=== PATIENT | female | born 1995 | race Caucasian/White ===

== ENCOUNTER 2016-10-22 20:45 | Emergency (ER) | payer OTHER, BC ==
[~2016-10-22] VITALS: Ht 170.2 cm; Wt 80.5 kg
[~2016-10-22 20:45] MED LIST: SERT50TA PO
[2016-10-22 21:07] VITALS: TEMP 36.7; Ht 170.2 cm; Wt 80.5 kg
--- NOTE | 2016-10-22 22:12 | DIAGNOSTIC IMAGING REPORT ---
THORACIC SPINE 3 VIEWS CLINICAL HISTORY: Thoracic back pain. FINDINGS: AP, lateral, and swimmer's views of the thoracic spine are correlated with lateral chest x-ray dated 07/08/2015. The skeletal structures are well mineralized. There is no radiographic evidence of fracture or malalignment. Vertebral body height and alignment are maintained. The transverse processes and pedicles are grossly intact on the frontal view. Intervertebral disc spaces appear maintained. The lung parenchyma is clear as visualized. IMPRESSION: Unremarkable radiographic assessment of the thoracic spine. Electronically signed by: Alvaro Valderrama M.D. 10/22/2016 10:10 PM Dictated Date/Time: 10/22/2016 10:09 PM
[2016-10-22 22:20] LABS: MANUAL MICROSCOPIC REQUIRED? NO; URINE APPEARANCE CLEAR (CLEAR); URINE BILIRUBIN NEG (NEG); URINE COLOR YELLOW; URINE NITRITE NEG (NEG); URINE PH 5.5 (4.5-7.5); URINE SPECIFIC GRAVITY <= 1.005 (1.000-1.030); UROBILINOGEN NEG (NEG)
[2016-10-22 22:26] LABS: REVIEW REQ? NO
[2016-10-22] MEDS ORDERED: FLEXERIL HOME PACK 10 MG VIAL PO ONE (22:45)
[2016-10-22] MEDS ORDERED: CYCL10TA6 PO (22:46)
[2016-10-22 22:55] VITALS: BP 118/74; PULSE 75; O2SAT 99
--- NOTE | 2016-10-23 00:57 | EMERGENCY ROOM VISIT NOTE ---
ED Visit Note First contact with patient: 21:12 Chief Complaint: I hurt my back at work. History of Present Illness: Ms. Tobar is a 21-year-old white female who ambulates into the ED complaining of thoracic back pain. Patient reports approximately 4 hours ago while at work she was helping to lift a client and felt a pulling in her back and developed pain. Since that time her pain has been constant. She describes her pain as a deep achy and sharp sensation. She places her discomfort just lateral to the thoracic bony spine in the lower rhomboid area. She rates her discomfort 5/10. Her pain is nonradiating. Her pain increases with deep inspiration and palpation. She has not identified any alleviating factors related to the pain. She has not taken any medications for pain prior to arrival at the hospital. Associated with her pain she also reports she does feel like she is been having increased urinary frequency but has not had any burning. She denies any associated symptoms including fevers, chills, sweats, skin eruptions, skin color changes, previous history of significant injuries or surgeries, coughing, wheezing, shortness of breath, abdominal pain, nausea, vomiting, urinary burning, hematuria, vaginal bleeding, vaginal discharge Review of Systems: As noted above in history of present illness. All body systems were reviewed and found to be negative as noted above. Past Medical History: Patient denies. Current Medications: Zoloft. Allergies to Medications: Sulfa, Zithromax. Social History: Patient is currently employed; she feels safe in her home environment; she admits to tobacco use. Physical Examination: Vital Signs: Date Time Temp Pulse Resp B/P Pulse Ox O2 Delivery O2 Flow Rate FiO2 10/22/16 22:55 75 18 118/74 99 Room Air 10/22/16 21:07 36.7 76 18 139/84 99 Room Air GENERAL: 21-year-old female in mild distress due to pain, nontoxic-appearing, afebrile and hemodynamically stable. NEUROLOGICAL: Awake, alert and oriented to person, place and time. Answering questions appropriately and following commands. Normal gait. Good hand eye coordination. No focal motor sensory deficits. SKIN: Warm, dry and pink. No soft tissue eruptions or trauma noted. HEENT: Atraumatic and normocephalic. PERRLA. Sclera white and conjunctiva pink. No drainage from naris. Oral cavity moist and pink. Pharynx is nonerythematous or edematous. Speech normal. No lymphadenopathy. Trachea midline. No jugular venous distention. BACK: No tenderness over the bony cervical and thoracic spine. Moderate tenderness with muscle spasm over the left lower rhomboid and trapezius area. No CVA tenderness. THORAX: Lungs sounds are clear to auscultation and equal bilaterally with symmetrical chest wall. No wheezing, rales or rhonchi. No crepitus, tenderness , subcutaneous air or deformities noted. HEART: Regular rate and rhythm. No gallops, rubs or murmurs are appreciated. ABDOMEN: Flat, soft and nontender. Positive bowel sounds in all quadrants. No guarding, rigidity or organomegaly. UPPER EXTREMITIES: Moves all extremities well on command and with purpose. All distal neurovascular statuses are intact and equal bilaterally. 5/5 muscle strength in all movements of the shoulder, elbows, forearms, wrists and hands. 2+ bicipital, tricipital and brachial radialis deep tendon reflexes intact and equal bilaterally. She was able to distinguish light sensations through all dermatomes. ED Course: Patient is assessed as noted above. Thoracic Back X-Rays: Were read by myself and the radiologist and shows no acute fractures or other abnormalities. No signs of bony deformity or subluxation. Patient was educated about tonight's findings and instructed on her treatment plan; she verbalizes understanding and agreement with this plan. Patient was offered pain medications and refused. Patient was educated about tonight's findings and instructed on her treatment plan; she verbalizes understanding and agreement with this plan. Clinical Impression: Thoracic back spasm. Disposition: Patient discharged home in stable condition; prior to departure she was reassessed and subjectively reported she was feeling better and rated her discomfort 2/10. Plan: Patient was encouraged to alternate ibuprofen and acetaminophen as needed for pain every 3 hours. Patient was prescribed Flexeril and instructed on achieves. Patient was signed off work for 3 days and was told to follow-up through Workmen 's Compensation for recheck and return to work instructions. Patient was encouraged return the ED for worsening/uncontrolled pain, upper extremity weakness/numbness/tingling or any new/concerning symptoms. Return to the emergency department
== END 2016-10-22 22:55 | disposition home or self-care (01) ==
LOC: C.EDB 20:47 → C.EDD 22:55
DX: M62.830 Muscle spasm of back (principal); Y99.0 Civilian activity done for income or pay; Y92.89 Other specified places as the place of occurrence of the external cause; X50.0XXA Overexertion from strenuous movement or load, initial encounter; Z79.899 Other long term (current) drug therapy; F17.200 Nicotine dependence, unspecified, uncomplicated

== ENCOUNTER 2016-10-31 15:28 | Emergency (ER) | payer OTHER, BC ==
[~2016-10-31] VITALS: Ht 170.2 cm; Wt 80.5 kg
[~2016-10-31 15:28] MED LIST changes: +CYCL10TA6 PO
[2016-10-31 15:35] VITALS: BP 133/78; PULSE 86; TEMP 36.7; O2SAT 98; Ht 170.2 cm; Wt 80.5 kg
--- NOTE | 2016-10-31 16:06 | EMERGENCY ROOM VISIT NOTE ---
ED Visit Note First contact with patient: 15:45 CHIEF COMPLAINT: Back pain HISTORY OF PRESENT ILLNESS: This 21-year-old female patient presents to the emergency department ambulatory complaining of pain in the w back which began 9 days ago when she was at work and moving a patient and felt a pulling sensation in her back. The pain was gradual in onset, is now constant and worse with movement. The patient notes the pain as sharp and a 8/10. The patient has taken naproxen and Flexeril with no relief of the pain. The patient denies any bowel or bladder difficulties. There has been no leg numbness or weakness, and no change in sensation. There has been no arm tingling or numbness. No nausea or vomiting or abdominal pain. No chest pain or shortness of breath. The patient has not had prior back injuries. She was initially seen here and had negative x-rays. She has also seen occupational medicine yesterday who gave her naproxen and schedule physical therapy to start tomorrow. She states the pain has increased and she is concerned that she cannot do the physical therapy because of the pain. REVIEW OF SYSTEMS: No dysuria or increased urinary frequency. A 6 system review of systems was completed and pertinent positives and negatives are in the HPI. ALLERGIES: Zithromax, sulfa MEDICATIONS: Zoloft PMH: Patient denies SOCIAL HISTORY: The patient is employed. She lives locally PHYSICAL EXAM: VITALS: Vitals are noted on the nurse's note and reviewed by myself. No abnormalities noted. GENERAL: This is a 21-year-old female, in no acute distress, nondiaphoretic, well-developed well-nourished. SKIN: The skin was without rashes, erythema, edema, or bruising. Capillary refill less than 2 seconds. NECK: Supple without nuchal rigidity. No cervical spine tenderness. No paraspinous muscle tenderness. HEART: Regular rate and rhythm without murmurs gallops or rubs. LUNGS: Clear to auscultation bilaterally without wheezes, rales or rhonchi. ABDOMEN: Positive bowel sounds x 4. Normal tympanic percussion. Soft, nontender, without masses or organomegaly. Au sign negative. MUSCULOSKELETAL: No muscle atrophy, erythema, or edema noted of the back. There is moderate tenderness over the lumbar spinous processes. There is moderate tenderness over the paraspinous muscles bilaterally. There is moderate tenderness over the thoracic spine and paraspinous muscles. There are no muscle spasms present. The patient is slow to move around with maximum tenderness with any movement. Negative straight leg raise test. NEURO: Patient was alert and oriented to person place and time. Normal sensation to light and sharp touch. Deep tendon reflexes 2+ in the upper extremities. Dorsalis pedis pulse 2+ bilaterally. Heel and toe walking is normal. EMERGENCY DEPARTMENT COURSE: The patient was seen and examined. Previous visits were reviewed. The patient was seen here approximately 9 Days ago after her injury. 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 She had x-rays that were normal at that time. The patient has followed up with occupational medicine, most recently seeing them yesterday. They gave her naproxen and scheduled her for physical therapy. The patient states the pain has persisted and she is concerned she could not complete the physical therapy because of the pain. She denies any pain in her chest or trouble breathing. She denies any abdominal pain or vomiting. The pain is worse with moving. She does not have any numbness, tingling or weakness in the upper or lower extremities. She does not have any neurologic deficit on exam. She does not have any significant abdominal tenderness. The patient will be given a very small prescription for [place]. She is given a note for work for 2 days in the event that she needs to take the [place]. She should contact occupational medicine first thing in the morning to schedule a follow-up appointment for further evaluation and management. I advised her that she may need to try the physical therapy before pursuing other interventions. She should return to the ER with any worsening symptoms. I reviewed the prescription drug monitoring website. The patient has not had recent narcotic prescriptions filled. Problem List Surgical Problems: (1) History of ear surgery Status: Resolved Current/Historical Medications Scheduled Sertraline (Zoloft), 100 MG PO HS Scheduled PRN Cyclobenzaprine Hcl (Flexeril), 10 MG PO Q8 PRN for Muscle Spasms Hydrocodone/Acetaminophen 5MG/325MG ([place] 5MG/325MG), 1 TABLET PO Q4H PRN for Pain Allergies Coded Allergies: Azithromycin (Verified Allergy, Unknown, HIVES/SWELLING, 10/31/16) Sulfa Drugs (Verified Allergy, Unknown, FAMILY HISTORY OF SWELLING/HIVES, 10/31/16) Vital Signs Date Time Temp Pulse Resp B/P Pulse Ox O2 Delivery O2 Flow Rate FiO2 10/31/16 15:35 36.7 86 18 133/78 98 Room Air Departure Information Impression Primary Impression: Back pain Additional Impression: Muscle spasm Dispostion Home / Self-Care Condition GOOD Prescriptions Hydrocodone/Acetaminophen 5MG/325MG ([place] 5MG/325MG) Tab 1 TABLET PO Q4H Y for Pain, #18 TAB For Initial Treatment Prov: Rachel Mccallum PA-C 10/31/16 Referrals John San M.D. (PCP) Jany Donato Forms HOME CARE DOCUMENTATION FORM, IMPORTANT VISIT INFORMATION, Work Instructions Return To Work: 2 days Patient Instructions ED Spasm Muscle, [facility] Additional Instructions Continue the naproxen but be sure to take with food [place] 1 tablet every 6 hours if needed for worse pain. Do not drink or drive while taking [place] and do not take with Tylenol. Contact occupational medicine first thing in the morning to discuss the next treatment option Return with any worsening symptoms, numbness, tingling, chest pain, trouble breathing, fevers, abdominal pain Problem Qualifiers Primary Impression: Back pain Back pain location: thoracic back pain Chronicity: acute Back pain laterality: bilateral Qualified Codes: M54.6 - Pain in thoracic spine
[2016-10-31] MEDS ORDERED: HYDR-5688 PO (16:11)
== END 2016-10-31 16:16 | disposition home or self-care (01) ==
LOC: C.EDB 15:29 → C.EDD 16:16
DX: M62.830 Muscle spasm of back (principal); Z79.899 Other long term (current) drug therapy; G89.29 Other chronic pain; Y99.0 Civilian activity done for income or pay; X50.0XXA Overexertion from strenuous movement or load, initial encounter

== ENCOUNTER 2016-12-05 09:10 | Emergency (ER) | payer BC, OTHER ==
[~2016-12-05] VITALS: Ht 170.2 cm; Wt 82.9 kg
[~2016-12-05 09:10] MED LIST changes: -CYCL10TA6 PO; +HYDR-5688 PO
[2016-12-05 09:21] VITALS: TEMP 36.7; Ht 170.2 cm; Wt 82.9 kg
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
[2016-12-05] MEDS ORDERED: FENTANYL CITRATE INJ 50 MCG/1 ML 2 ML VIAL IV STA (10:03)
[2016-12-05] MEDS ORDERED: SODIUM CHLORIDE 0.9% 1000ML 1,000 ML IV STA (10:03)
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
[2016-12-05 12:38] LABS: BASO % 0.4 %; BASO ABS # 0.03 K/uL (0-0.2); COMPLETE YES; EOS % 1.5 %; HEMATOCRIT 39.8 % (37-47); IG% 0.6 %; LYMPH % 20.9 %; LYMPH ABS # 1.71 K/uL (1.2-3.4); MEAN CORPUSCULAR HEMOGLOBIN 30.1 pg (25-34); MEAN CORPUSCULAR HGB CONC 33.4 g/dl (32-36); MEAN PLATELET VOLUME 11.3 fL (7.4-10.4); MONO % 7.1 %; NEUT % 69.5 %; PLATELET COUNT 227 K/uL (130-400); RED BLOOD COUNT 4.42 M/uL (4.2-5.4)
[2016-12-05 12:44] LABS: BUN/CREATININE RATIO 12.5 (10-20); CREATININE 0.76 mg/dl (0.60-1.20); POTASSIUM 4.1 mmol/L (3.5-5.1)
[2016-12-05] MEDS ORDERED: HYDROCODONE/ACETAMOPHEN 5/325MG TAB PO STA (12:48)
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
[2016-12-05 12:54] VITALS: BP 123/78; PULSE 69; O2SAT 98
== END 2016-12-05 13:34 | disposition home or self-care (01) ==
LOC: EDBD 09:10 → C.EDB 09:11
DX: S09.90XA Unspecified injury of head, initial encounter (principal); V49.40XA Driver injured in collision with unspecified motor vehicles in traffic accident, initial encounter; Y92.488 Other paved roadways as the place of occurrence of the external cause; M54.2 Cervicalgia; M54.9 Dorsalgia, unspecified; F17.210 Nicotine dependence, cigarettes, uncomplicated; Z83.3 Family history of diabetes mellitus; Z82.49 Family history of ischemic heart disease and other diseases of the circulatory system; Z84.1 Family history of disorders of kidney and ureter

== ENCOUNTER 2017-03-05 14:16 | Emergency (ER) | payer BC, OTHER ==
[~2017-03-05] VITALS: Ht 170.2 cm; Wt 81.6 kg
[~2017-03-05 14:16] MED LIST changes: -HYDR-5688 PO
[2017-03-05 14:20] VITALS: Ht 170.2 cm; Wt 81.6 kg
[2017-03-05 14:42] VITALS: O2SAT 96
[2017-03-05] MEDS ORDERED: AMOX500C3 PO (14:58)
[2017-03-05] MEDS ORDERED: SNG10 PO (14:58)
[2017-03-05] MEDS ORDERED: PRDUDL5 PO (14:58)
[2017-03-05 15:14] LABS: BASO % 0.5 %; BASO ABS # 0.04 K/uL (0-0.2); COMPLETE YES; HEMATOCRIT 40.2 % (37-47); IG% 0.2 %; LYMPH % 34.2 %; LYMPH ABS # 2.95 K/uL (1.2-3.4); MEAN CELL VOLUME 89.1 fL (80-100); MEAN CORPUSCULAR HEMOGLOBIN 30.2 pg (25-34); MEAN CORPUSCULAR HGB CONC 33.8 g/dl (32-36); MEAN PLATELET VOLUME 11.4 fL (7.4-10.4); MONO % 7.8 %; NEUT % 55.3 %; PLATELET COUNT 239 K/uL (130-400); RED BLOOD COUNT 4.51 M/uL (4.2-5.4); WHITE BLOOD COUNT 8.63 K/uL (4.8-10.8)
[2017-03-05 15:24] LABS: POINT OF CARE TROPONIN I < 0.030 ng/ml (0-0.045)
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
[2017-03-05 15:29] LABS: BUN/CREATININE RATIO 13.1 (10-20); CALCIUM 9.1 mg/dl (8.5-10.1); CREATININE 0.79 mg/dl (0.60-1.20); INR 1.1 (0.9-1.1); PARTIAL THROMBOPLASTIN RATIO 1.1; POTASSIUM 3.9 mmol/L (3.5-5.1); PROTHROMBIN TIME (PATIENT) 11.4 SECONDS (9.0-12.0)
[2017-03-05 15:43] LABS: PREG INTERNAL NEGATIVE QC NEG CLEAR BACKGROUND; PREG INTERNAL POSITIVE QC POS CONTROL LINE
[2017-03-05] MEDS ORDERED: OPTIRAY 320 IV PRN (16:15)
--- NOTE | 2017-03-05 17:21 | DIAGNOSTIC IMAGING REPORT ---
ULTRASOUND VENOUS DOPPLER LWR EXT BILA CLINICAL HISTORY: Bilateral leg edema, pain, elevated D dimer, dyspnea COMPARISON STUDY: No previous studies for comparison. FINDINGS: Real-time and color flow Doppler imaging were performed. Flow was seen within the femoral, popliteal and calf veins with no intraluminal thrombus demonstrated. The saphenous vein is patent. IMPRESSION: No evidence of lower extremity DVT. Electronically signed by: Rasheed Rice M.D. 03/05/2017 5:20 PM Dictated Date/Time: 03/05/2017 5:20 PM
--- NOTE | 2017-03-05 17:27 | DIAGNOSTIC IMAGING REPORT ---
(CHEST FOR PE) ANGIO WITH CLINICAL HISTORY: 22 years-old Female presenting with chest pain. TECHNIQUE: Multidetector CT angiography of the chest was performed after administration of intravenous contrast. 3-D volumetric and maximum intensity projection (MIP) images were subsequently reconstructed for review. IV contrast: 93 mL of Optiray 320. A dose lowering technique was used consistent with the principles of ALARA (as low as reasonably achievable). COMPARISON: Chest x-ray from 03/05/2017. CT DOSE (mGy.cm): The estimated cumulative dose is 233.12 mGy.cm. FINDINGS: Carbonizer Tester topogram: Unremarkable. Pulmonary vasculature: The study is adequate for assessment of the pulmonary vascular tree. No filling defect within the pulmonary arteries to suggest embolus. Main pulmonary artery not enlarged. No flattening of the interventricular septum. No intracardiac filling defect. Remaining chest: On soft tissue windows, normal thyroid and thoracic inlet. Residual thymic tissue noted. No axillary, supraclavicular, or mediastinal lymphadenopathy. Few small hilar lymph nodes noted bilaterally, likely reactive. Normal aorta. Normal heart size. No pericardial or pleural effusion. Upper abdomen normal. On lung windows, minimal dependent changes likely atelectasis. No focal infiltrate. Possible minimal mosaic attenuation at the lung bases could suggest small airways disease. Suggestion of mild bronchial wall thickening most pronounced in the lower lobes. On bone windows, normal osseous structures. IMPRESSION: 1. No evidence of pulmonary embolus. 2. Subtle mosaic attenuation combined with mild bronchial wall thickening in the lower lobes could suggest small airways disease or viral bronchiolitis. No focal infiltrate. Electronically signed by: Jose Cruz Foy M.D. 03/05/2017 5:26 PM Dictated Date/Time: 03/05/2017 5:22 PM
[2017-03-05] MEDS ORDERED: HYDR-5688 PO (17:47)
[2017-03-05] MEDS ORDERED: VNTHFA/IN INH (17:47)
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
[2017-03-05 17:58] VITALS: BP 120/76; PULSE 91; TEMP 36.7; O2SAT 97
== END 2017-03-05 17:59 | disposition home or self-care (01) ==
LOC: C.EDB 14:18 → C.EDD 17:59
DX: R07.81 Pleurodynia (principal); R06.02 Shortness of breath; F17.200 Nicotine dependence, unspecified, uncomplicated; Z83.3 Family history of diabetes mellitus; Z82.49 Family history of ischemic heart disease and other diseases of the circulatory system; Z84.1 Family history of disorders of kidney and ureter

== ENCOUNTER 2017-07-12 15:11 | Emergency (ER) | payer BC, OTHER ==
[~2017-07-12] VITALS: Ht 170.2 cm; Wt 80.7 kg
[~2017-07-12 15:11] MED LIST changes: +AMOX500C3 PO; +HYDR-5688 PO; +PRDUDL5 PO; +SNG10 PO; +VNTHFA/IN INH
[2017-07-12 15:15] VITALS: TEMP 36.7; Ht 170.2 cm; Wt 80.7 kg
[2017-07-12] MEDS ORDERED: SODIUM CHLORIDE 0.9% 1000ML 1,000 ML IV STA (15:41)
--- NOTE | 2017-07-12 15:53 | EMERGENCY ROOM VISIT NOTE ---
History Report prepared by Brian: Paradise Hendricks Under the Supervision of: Dr. Paulino Goodson M.D. First contact with patient: 15:18 Chief Complaint: RECTAL BLEEDING Stated Complaint: RECTAL BLEEDING, BLOOD IN STOOLS History of Present Illness The patient is a 22 year old female who presents to the Emergency Room with complaints of intermittent rectal bleeding beginning for the past three months. The patient reports that over the past three months she has seen blood on her toilet paper when she wipes. Today, the patient started to have visible blood in her stool which has not happened to her before. She notes passing three bowel movements today which she reports is more than her baseline. She states the first two bowel movements she had today were brown in color with blood in them. She notes the last bowel movement she had today was darkish green/almost black in color which also had blood in it. She reports having "mucus-y" stool more recently. The patient reports she was "sick" five days ago with sharp abdominal pain and diarrhea. Presently, she reports some abdominal pain but denies any blood in her urine or fever. She also denies eating anything out of the ordinary. The patient's last menstrual cycle was two weeks ago and she denies any chance of . The patient has not seen a physician for her symptoms yet. Source of History: patient Onset: three months ago Position: other (rectal) Quality: other (bleeding) Timing: intermittent Associated Symptoms: + diarrhea, No fevers, No urinary symptoms Review of Systems See HPI for pertinent positives and negatives. A total of ten systems were reviewed and were otherwise negative. Past Medical & Surgical Surgical Problems: (1) History of ear surgery Family History Cancer Diabetes mellitus Heart disease Hypertension Kidney disease Kidney stones Lung disease Social History Smoking Status: Current Every Day Smoker Alcohol Use: none Drug Use: none Marital Status: single Housing Status: lives with roommate Occupation Status: employed Current/Historical Medications Scheduled Ciprofloxacin Hcl (Cipro), 500 MG PO BID Metronidazole (Flagyl), 500 MG PO TID Saccharomyces Boulardii (Florastor), 1 CAP PO BID Sertraline (Zoloft), 100 MG PO HS Scheduled PRN Fluticasone Prop/Salmeterol (Advair Diskus 250/50 60 Dose), 1 PUFF INH BID PRN for SOB/Wheezing Montelukast Sod (Montelukast Sodium), 10 MG PO DAILY PRN for ALLERGIC REACTION [Proair 108], 2 PUFFS INH Q4 PRN for COUGH/WHEEZE Allergies Coded Allergies: Azithromycin (Verified Allergy, Unknown, HIVES/SWELLING, 12/05/16) Sulfa Drugs (Verified Allergy, Unknown, FAMILY HISTORY OF SWELLING/HIVES, 12/05/16) Physical Exam Vital Signs Date Time Temp Pulse Resp B/P (MAP) Pulse Ox O2 Delivery O2 Flow Rate FiO2 07/12/17 17:40 77 18 112/69 100 Room Air 07/12/17 16:59 79 18 126/73 98 Room Air 07/12/17 16:14 73 07/12/17 15:15 36.7 99 18 141/82 99 Room Air Physical Exam GENERAL: Awake, alert, well-appearing, in no distress HENT: Normocephalic, atraumatic. Oropharynx unremarkable. EYES: Normal conjunctiva. Sclera non-icteric. NECK: Supple. No nuchal rigidity. FROM. No JVD. RESPIRATORY: Clear to auscultation. CARDIAC: Regular rate, normal rhythm. Extremities warm and well perfused. Pulses equal. ABDOMEN: Minimal tenderness to RUQ, RLQ, epigastric region, LLQ, and LUQ, no peritoneal signs. Soft, non-distended. No rebound or guarding. No masses. RECTAL: Brown stool guaiac positive. MUSCULOSKELETAL: Chest examination reveals no tenderness. The back is symmetrical on inspection without obvious abnormality. There is no CVA tenderness to palpation. No joint edema. LOWER EXTREMITIES: Calves are equal size bilaterally and non-tender. No edema. No discoloration. NEURO: Normal sensorium. No sensory or motor deficits noted. SKIN: No rash or jaundice noted. Medical Decision & Procedures Laboratory Results 07/12/17 16:09 Red Blood Count 4.44, Mean Corpuscular Volume 88.7, Mean Corpuscular Hemoglobin 30.4, Mean Corpuscular Hemoglobin Concent 34.3, Mean Platelet Volume 11.4, Neutrophils (%) (Auto) 67.2, Lymphocytes (%) (Auto) 24.8, Monocytes (%) (Auto) 6.6, Eosinophils (%) (Auto) 1.0, Basophils (%) (Auto) 0.2, Neutrophils # (Auto) 5.82, Lymphocytes # (Auto) 2.15, Monocytes # (Auto) 0.57, Eosinophils # (Auto) 0.09, Basophils # (Auto) 0.02 07/12/17 16:09 Test 07/12/17 16:09 07/12/17 16:50 White Blood Count 8.67 K/uL (4.8-10.8) Red Blood Count 4.44 M/uL (4.2-5.4) Hemoglobin 13.5 g/dL (12.0-16.0) Hematocrit 39.4 % (37-47) Mean Corpuscular Volume 88.7 fL (80-100) Mean Corpuscular Hemoglobin 30.4 pg (25-34) Mean Corpuscular Hemoglobin Concent 34.3 g/dl (32-36) Platelet Count 185 K/uL (130-400) Mean Platelet Volume 11.4 fL (7.4-10.4) Neutrophils (%) (Auto) 67.2 % Lymphocytes (%) (Auto) 24.8 % Monocytes (%) (Auto) 6.6 % Eosinophils (%) (Auto) 1.0 % Basophils (%) (Auto) 0.2 % Neutrophils # (Auto) 5.82 K/uL (1.4-6.5) Lymphocytes # (Auto) 2.15 K/uL (1.2-3.4) Monocytes # (Auto) 0.57 K/uL (0.11-0.59) Eosinophils # (Auto) 0.09 K/uL (0-0.5) Basophils # (Auto) 0.02 K/uL (0-0.2) RDW Standard Deviation 43.6 fL (36.4-46.3) RDW Coefficient of Variation 13.5 % (11.5-14.5) Immature Granulocyte % (Auto) 0.2 % Immature Granulocyte # (Auto) 0.02 K/uL (0.00-0.02) Erythrocyte Sedimentation Rate 8 mm/hr (0-21) Anion Gap 6.0 mmol/L (3-11) Est Creatinine Clear Calc Drug Dose 139.8 ml/min Estimated GFR () 143.2 Estimated GFR (Non- 123.6 BUN/Creatinine Ratio 15.1 (10-20) Calcium Level 9.0 mg/dl (8.5-10.1) Total Bilirubin 0.4 mg/dl (0.2-1) Direct Bilirubin < 0.1 mg/dl (0-0.2) Aspartate Amino Transf (AST/SGOT) 9 U/L (15-37) Alanine Aminotransferase (ALT/SGPT) 13 U/L (12-78) Alkaline Phosphatase 82 U/L (45-117) C-Reactive Protein 0.64 mg/dl (0-0.29) Total Protein 7.5 gm/dl (6.4-8.2) Albumin 3.9 gm/dl (3.4-5.0) Lipase 67 U/L (73-393) Urine Color YELLOW Urine Appearance CLEAR (CLEAR) Urine pH 5.0 (4.5-7.5) Urine Specific [place] 1.013 (1.000-1.030) Urine Protein NEG (NEG) Urine Glucose (UA) NEG (NEG) Urine Ketones NEG (NEG) Urine Occult Blood NEG (NEG) Urine Nitrite NEG (NEG) Urine Bilirubin NEG (NEG) Urine Urobilinogen NEG (NEG) Urine Leukocyte Esterase TRACE (NEG) Urine WBC (Auto) 5-10 /hpf (0-5) Urine RBC (Auto) 0-4 /hpf (0-4) Urine Hyaline Casts (Auto) 1-5 /lpf (0-5) Urine Epithelial Cells (Auto) >30 /lpf (0-5) Urine Bacteria (Auto) 1+ (NEG) Urine Mucus PRESENT (NONE PRSENT) Urine Test NEG (NEG) Laboratory results reviewed by me Medications Administered Medications (Trade) Dose Ordered Sig/Chad Route Start Time Stop Time Status Last Admin Dose Admin Sodium Chloride 1,000 ml @ 999 mls/hr Q1H1M STAT IV 07/12/17 15:41 07/12/17 16:41 DC 07/12/17 16:03 999 MLS/HR ED Course 1531: The patient was evaluated in room B6. A complete history and physical exam was performed. 1541: Ordered Sodium Chloride 1000 ml @ 999 mls/hr IV. 1723: The patient is resting comfortably. She is ready to go home. 1738: I reevaluated the patient. Discussed results and discharge instructions: She verbalized understanding and agreement. The patient is ready for discharge. Medical Decision I reviewed the patient's past medical history, medications, and the nursing notes as described above. Differential diagnoses includes: Colitis, gastroenteritis, appendicitis, diverticulitis, biliary etiology, gastritis. The patient is a 22-year-old woman who presents emergency Department with diarrhea and abdominal pain that has been evolving since Friday at which point she did have low-grade fevers now experiencing blood in her stool per hpi. The patient denies any family history of IBD or any prior episodes of similar symptoms. Exam the patient is well-appearing, no acute distress, afebrile stable vital signs. Rectal exam demonstrates brown stool that is guaiac negative. She has minimal tenderness in the right and left abdomen and epigastrium. No peritoneal signs. Labs marginally elevated CRP and otherwise unremarkable including WBC and ESR within normal limits. Given the patient is well appearing with benign abdominal exam and unremarkable rectal exam the patient is unlikely to have an emergent process and symptoms could be related to a viral gastroenteritis. However given the patient's symptoms that have been ongoing for 5 days I gave the patient options for receiving a prescription for antibiotics should her symptoms not resolve in the next several days with the caveat that antibiotics also have risks related to their use. Understanding this, the patient preferred this option. I instructed the patient on the importance of obtaining a stool sample that she should delivered to her PCP on Friday. Patient was agreeable with this. Thus will give him prescription for Cipro and Flagyl in the patient's symptoms do not resolve. Findings and plan for follow-up reviewed with patient. Patient agreeable and d/c 'd per discharge instructions. Medication Reconcilliation Current Medication List: was personally reviewed by me Blood Pressure Screening Patient's blood pressure: Normal blood pressure Impression Primary Impression: Gastroenteritis and colitis, viral Scribe Attestation The scribe's documentation has been prepared under my direction and personally reviewed by me in its entirety. I confirm that the note above accurately reflects all work, treatment, procedures, and medical decision making performed by me. Departure Information Dispostion Home / Self-Care Prescriptions Saccharomyces Boulardii (Florastor) 250 Mg Cap 1 CAP PO BID for 10 Days, #20 CAP Prov: Paulino Goodson M.D. 07/12/17 Metronidazole (Flagyl) 500 Mg Tab 500 MG PO TID for 5 Days, #15 TAB Prov: Paulino Goodson M.D. 07/12/17 Ciprofloxacin Hcl (CIPRO) 500 Mg Tab 500 MG PO BID for 5 Days, #10 TAB Prov: Paulino Goodson M.D. 07/12/17 Referrals No Doctor, Assigned (PCP) Forms HOME CARE DOCUMENTATION FORM, IMPORTANT VISIT INFORMATION, WORK / SCHOOL INSTRUCTIONS Patient Instructions ED Gastroenteritis Bacterial, ED Gastroenteritis Viral, My [facility] Additional Instructions Please follow up with your primary care physician on Friday for re-evaluation and bring stool sample if able for testing. You likely have a gastroenteritis, the majority of which are viral, however if you symptoms do not improve, bacterial infection is possible. If not improving over the next several days you may begin your antibiotic prescriptions with probiotic to help avoid antibiotic associated diarrhea. Otherwise, your exam and lab results did not show signs of an emergent condition at this time. Ensure hydration. Return to the emergency department for worsening symptoms as described in the accompanying instructions.
[2017-07-12] MEDS ORDERED: PROAIR 108 INH (16:18)
[2017-07-12] MEDS ORDERED: ADVIN25/60 INH (16:18)
[2017-07-12 16:25] LABS: BASO % 0.2 %; BASO ABS # 0.02 K/uL (0-0.2); EOS ABS # 0.09 K/uL (0-0.5); HEMATOCRIT 39.4 % (37-47); HEMOGLOBIN 13.5 g/dL (12.0-16.0); IG# 0.02 K/uL (0.00-0.02); LYMPH % 24.8 %; LYMPH ABS # 2.15 K/uL (1.2-3.4); MEAN CELL VOLUME 88.7 fL (80-100); MEAN CORPUSCULAR HEMOGLOBIN 30.4 pg (25-34); MEAN CORPUSCULAR HGB CONC 34.3 g/dl (32-36); MEAN PLATELET VOLUME 11.4 fL (7.4-10.4); MONO % 6.6 %; MONO ABS # 0.57 K/uL (0.11-0.59); NEUT % 67.2 %; NEUT ABS # 5.82 K/uL (1.4-6.5); PLATELET COUNT 185 K/uL (130-400); RED CELL DISTRIBUTION WIDTH CV 13.5 % (11.5-14.5); RED CELL DISTRIBUTION WIDTH SD 43.6 fL (36.4-46.3); WHITE BLOOD COUNT 8.67 K/uL (4.8-10.8)
[2017-07-12 16:50] LABS: ALBUMIN 3.9 gm/dl (3.4-5.0); ALT/SGPT 13 U/L (12-78); AST/SGOT 9 U/L (15-37); BLOOD UREA NITROGEN 10 mg/dl (7-18); CARBON DIOXIDE 23 mmol/L (21-32); CREATININE 0.69 mg/dl (0.60-1.20); GLUCOSE 84 mg/dl (70-99); LIPASE 67 U/L (73-393); POTASSIUM 3.7 mmol/L (3.5-5.1); SODIUM 136 mmol/L (136-145)
[2017-07-12 16:53] LABS: ALKALINE PHOSPHATASE 82 U/L (45-117); TOTAL PROTEIN 7.5 gm/dl (6.4-8.2)
[2017-07-12] MEDS ORDERED: METR-163 PO (17:31)
[2017-07-12] MEDS ORDERED: CIPR-255 PO (17:31)
[2017-07-12] MEDS ORDERED: SACC250C3 PO (17:35)
[2017-07-12 17:40] VITALS: BP 112/69; PULSE 77; O2SAT 100
== END 2017-07-12 17:55 | disposition home or self-care (01) ==
LOC: C.EDB 15:12
DX: K52.9 Noninfective gastroenteritis and colitis, unspecified (principal); F17.200 Nicotine dependence, unspecified, uncomplicated; Z98.890 Other specified postprocedural states; Z79.899 Other long term (current) drug therapy; Z88.2 Allergy status to sulfonamides; Z88.3 Allergy status to other anti-infective agents; Z80.9 Family history of malignant neoplasm, unspecified; Z83.3 Family history of diabetes mellitus; Z82.49 Family history of ischemic heart disease and other diseases of the circulatory system; Z84.1 Family history of disorders of kidney and ureter

== ENCOUNTER 2017-09-23 22:16 | Emergency (ER) | payer BC ==
[~2017-09-23] VITALS: Ht 170.2 cm; Wt 79.7 kg
[~2017-09-23 22:16] MED LIST changes: +ADVIN25/60 INH; -AMOX500C3 PO; +CIPR-255 PO; -HYDR-5688 PO; -PRDUDL5 PO; +PROAIR 108 INH; -VNTHFA/IN INH
[2017-09-23 22:21] VITALS: TEMP 36.7
[2017-09-23] MEDS ORDERED: FAMOTIDINE 20 MG TAB PO STA (22:32)
[2017-09-23] MEDS ORDERED: NICOTINE 21 MG/24 HR TDSY TD STA (22:32)
[2017-09-23] MEDS ORDERED: SUCRALFATE 1 GM TAB PO STA (22:32)
[2017-09-23] MEDS ORDERED: GI COCKTAIL PO STA (22:32)
[2017-09-23] MEDS ORDERED: SODIUM CHLORIDE 0.9% 1000ML 1,000 ML IV STA (22:32)
[2017-09-23 22:40] VITALS: O2SAT 100; Ht 170.2 cm; Wt 79.7 kg
[2017-09-23] MEDS ORDERED: ALUMINUM/MAGNESIUM SUSP 30 ML UDC ONE (22:41)
[2017-09-23] MEDS ORDERED: LIDOCAINE HCL 2% VISC SOLN 20 ML UDC ONE (22:42)
[2017-09-23] MEDS ORDERED: IBUP-1050 PO (22:58)
[2017-09-23 23:03] LABS: BASO % 0.3 %; BASO ABS # 0.04 K/uL (0-0.2); EOS % 1.2 %; EOS ABS # 0.18 K/uL (0-0.5); HEMATOCRIT 40.5 % (37-47); HEMOGLOBIN 13.8 g/dL (12.0-16.0); IG# 0.03 K/uL (0.00-0.02); LYMPH % 32.1 %; LYMPH ABS # 4.63 K/uL (1.2-3.4); MEAN CELL VOLUME 88.4 fL (80-100); MEAN CORPUSCULAR HEMOGLOBIN 30.1 pg (25-34); MEAN CORPUSCULAR HGB CONC 34.1 g/dl (32-36); MEAN PLATELET VOLUME 11.5 fL (7.4-10.4); MONO ABS # 0.87 K/uL (0.11-0.59); NEUT % 60.2 %; NEUT ABS # 8.69 K/uL (1.4-6.5); PLATELET COUNT 255 K/uL (130-400); RED CELL DISTRIBUTION WIDTH CV 13.8 % (11.5-14.5); RED CELL DISTRIBUTION WIDTH SD 44.9 fL (36.4-46.3); WHITE BLOOD COUNT 14.44 K/uL (4.8-10.8)
[2017-09-23 23:18] LABS: ALBUMIN 4.5 gm/dl (3.4-5.0); ALT/SGPT 13 U/L (12-78); BLOOD UREA NITROGEN 12 mg/dl (7-18); CALCIUM 9.5 mg/dl (8.5-10.1); CARBON DIOXIDE 24 mmol/L (21-32); GLUCOSE 87 mg/dl (70-99); POTASSIUM 3.6 mmol/L (3.5-5.1); SODIUM 137 mmol/L (136-145)
[2017-09-23 23:30] LABS: ALKALINE PHOSPHATASE 90 U/L (45-117); AST/SGOT 12 U/L (15-37); CKMB < 0.5 ng/ml (0.5-3.6); TOTAL PROTEIN 7.7 gm/dl (6.4-8.2)
[2017-09-23] MEDS ORDERED: FAMO40TA6 PO (23:41)
--- NOTE | 2017-09-23 23:47 | EMERGENCY ROOM VISIT NOTE ---
History Report prepared by Brian: Evon Nina Under the Supervision of: Dr. Isael Markham M.D. First contact with patient: 22:24 Chief Complaint: HEADACHE Stated Complaint: DEHYDRATION,DIZZY,LOSING BALANCE,CHESTPAIN,BOX History of Present Illness The patient is a 22 year old female who presents to the Emergency Room with complaints of persistent headache starting 1 week ago. The headache wakes her up in the morning. It improves with ibuprofen. She notes that the ibuprofen is causing her to have some abdominal pain. The patient feels that she might be dehydrated. She has been feeling fatigued and dizzy. Today she had some ringing in her ears. She also had some chest pain today. She has never had these symptoms before. The patient works at [employer] which she states is stressful. She stopped taking her sertraline 2 months ago. She does smoke. She denies any chance of . Her last menstrual period was 1 week ago. Source of History: patient Onset: 1 week ago Position: head Quality: ache Timing: other (persistent) Modifying Factors (Relieving): ibuprofen Associated Symptoms: + chest pain, + abdominal pain, + fatigue Note: Pt reports dizziness. Review of Systems See HPI for pertinent positives & negatives. A total of 10 systems reviewed and were otherwise negative. Past Medical & Surgical Surgical Problems: (1) History of ear surgery Family History Cancer Diabetes mellitus Heart disease Hypertension Kidney disease Kidney stones Lung disease Social History Smoking Status: Current Every Day Smoker Alcohol Use: none Drug Use: none Marital Status: single Housing Status: lives with roommate Occupation Status: employed Current/Historical Medications Scheduled Famotidine (Pepcid), 40 MG PO HS Scheduled PRN Fluticasone Prop/Salmeterol (Advair Diskus 250/50 60 Dose), 1 PUFF INH BID PRN for SOB/Wheezing Ibuprofen (Advil), 800 MG PO DAILY PRN for Headache or Pain Montelukast Sod (Montelukast Sodium), 10 MG PO DAILY PRN for ALLERGIC REACTION [Proair 108], 2 PUFFS INH Q4 PRN for COUGH/WHEEZE Allergies Coded Allergies: Azithromycin (Verified Allergy, Unknown, HIVES/SWELLING, 12/05/16) Sulfa Drugs (Verified Allergy, Unknown, FAMILY HISTORY OF SWELLING/HIVES, 12/05/16) Physical Exam Vital Signs Date Time Temp Pulse Resp B/P (MAP) Pulse Ox O2 Delivery O2 Flow Rate FiO2 09/24/17 00:13 70 18 127/77 98 09/23/17 23:56 70 18 127/77 98 Room Air 09/23/17 23:52 71 18 120/78 99 09/23/17 23:24 71 113/76 75 128/84 89 121/81 09/23/17 22:52 82 09/23/17 22:40 100 Room Air 09/23/17 22:40 100 Room Air 09/23/17 22:21 36.7 93 16 131/85 100 Room Air Physical Exam GENERAL: Awake, alert, well-appearing, in no acute distress HENT: Normocephalic, atraumatic. Oropharynx unremarkable. EYES: Normal conjunctiva. Sclera non-icteric. NECK: Supple. No nuchal rigidity. FROM. No JVD. No evidence of meningitis or encephalitis on exam RESPIRATORY: Clear to auscultation. CARDIAC: Regular rate, normal rhythm. Extremities warm and well perfused. Pulses equal. ABDOMEN: Soft, non-distended. No tenderness to palpation. No rebound or guarding. No masses. RECTAL: Deferred. MUSCULOSKELETAL: Chest examination reveals no tenderness. The back is symmetrical on inspection without obvious abnormality. There is no CVA tenderness to palpation. No joint edema. LOWER EXTREMITIES: Calves are equal size bilaterally and non-tender. No edema. No discoloration. NEURO: Normal sensorium. No sensory or motor deficits noted. SKIN: No rash or jaundice noted. Medical Decision & Procedures ER Provider Diagnostic Interpretation: X-ray results as stated below per interpretation by me: 1-view of the chest shows no evidence of pneumonia, congestion, or pneumothorax. 3-view of the abdomen shows no evidence of obstruction, no free air under the diaphragm, moderate amount of constipation. Laboratory Results 09/23/17 22:40 Red Blood Count 4.58, Mean Corpuscular Volume 88.4, Mean Corpuscular Hemoglobin 30.1, Mean Corpuscular Hemoglobin Concent 34.1, Mean Platelet Volume 11.5, Neutrophils (%) (Auto) 60.2, Lymphocytes (%) (Auto) 32.1, Monocytes (%) (Auto) 6.0, Eosinophils (%) (Auto) 1.2, Basophils (%) (Auto) 0.3, Neutrophils # (Auto) 8.69, Lymphocytes # (Auto) 4.63, Monocytes # (Auto) 0.87, Eosinophils # (Auto) 0.18, Basophils # (Auto) 0.04 09/23/17 22:40 Test 09/23/17 22:40 09/23/17 22:48 09/23/17 22:56 White Blood Count 14.44 K/uL (4.8-10.8) Red Blood Count 4.58 M/uL (4.2-5.4) Hemoglobin 13.8 g/dL (12.0-16.0) Hematocrit 40.5 % (37-47) Mean Corpuscular Volume 88.4 fL (80-100) Mean Corpuscular Hemoglobin 30.1 pg (25-34) Mean Corpuscular Hemoglobin Concent 34.1 g/dl (32-36) Platelet Count 255 K/uL (130-400) Mean Platelet Volume 11.5 fL (7.4-10.4) Neutrophils (%) (Auto) 60.2 % Lymphocytes (%) (Auto) 32.1 % Monocytes (%) (Auto) 6.0 % Eosinophils (%) (Auto) 1.2 % Basophils (%) (Auto) 0.3 % Neutrophils # (Auto) 8.69 K/uL (1.4-6.5) Lymphocytes # (Auto) 4.63 K/uL (1.2-3.4) Monocytes # (Auto) 0.87 K/uL (0.11-0.59) Eosinophils # (Auto) 0.18 K/uL (0-0.5) Basophils # (Auto) 0.04 K/uL (0-0.2) RDW Standard Deviation 44.9 fL (36.4-46.3) RDW Coefficient of Variation 13.8 % (11.5-14.5) Immature Granulocyte % (Auto) 0.2 % Immature Granulocyte # (Auto) 0.03 K/uL (0.00-0.02) Anion Gap 8.0 mmol/L (3-11) Est Creatinine Clear Calc Drug Dose 119.9 ml/min Estimated GFR () 121.3 Estimated GFR (Non- 104.7 BUN/Creatinine Ratio 15.3 (10-20) Calcium Level 9.5 mg/dl (8.5-10.1) Total Bilirubin 0.4 mg/dl (0.2-1) Direct Bilirubin 0.1 mg/dl (0-0.2) Aspartate Amino Transf (AST/SGOT) 12 U/L (15-37) Alanine Aminotransferase (ALT/SGPT) 13 U/L (12-78) Alkaline Phosphatase 90 U/L (45-117) Total Creatine Kinase 51 U/L (26-192) Creatine Kinase MB < 0.5 ng/ml (0.5-3.6) Creatine Kinase MB Ratio (0-3.0) Troponin I < 0.015 ng/ml (0-0.045) Total Protein 7.7 gm/dl (6.4-8.2) Albumin 4.5 gm/dl (3.4-5.0) Thyroid Stimulating Hormone (TSH) 2.540 uIu/ml (0.300-4.500) Marisol-Brooks Virus Capsid Ag IgG Ab >750.00 U/ML E-B Virus Capsid Ag IgM Ab Index < 36.00 U/ML EBV Early Ag Ab (Restrict +Diffuse) < 9.00 U/ML Marisol-Brooks Virus Nuclear Ag Ab 395.00 U/ML Monoscreen NEG (NEG) Urine Color YELLOW Urine Appearance CLEAR (CLEAR) Urine pH 5.0 (4.5-7.5) Urine Specific [place] 1.009 (1.000-1.030) Urine Protein NEG (NEG) Urine Glucose (UA) NEG (NEG) Urine Ketones TRACE (NEG) Urine Occult Blood NEG (NEG) Urine Nitrite NEG (NEG) Urine Bilirubin NEG (NEG) Urine Urobilinogen NEG (NEG) Urine Leukocyte Esterase NEG (NEG) Urine Test NEG (NEG) Bedside Glucose 86 mg/dl (70-90) Labs reviewed by ED physician. Medications Administered Medications (Trade) Dose Ordered Sig/Chad Route Start Time Stop Time Status Last Admin Dose Admin Nicotine (Nicoderm Cq 21MG Patch) 1 patch NOW STAT TD 09/23/17 22:32 09/23/17 22:36 DC 09/23/17 22:44 1 PATCH Sodium Chloride 1,000 ml @ 999 mls/hr Q1H1M STAT IV 09/23/17 22:32 09/23/17 23:32 DC 09/23/17 22:45 999 MLS/HR Famotidine (Pepcid Tab) 20 mg NOW STAT PO 09/23/17 22:32 09/23/17 22:36 DC 09/23/17 22:44 20 MG Sucralfate (Carafate Tab) 1 gm NOW STAT PO 09/23/17 22:32 09/23/17 22:36 DC 09/23/17 22:44 1 GM Al Hydroxide/Mg Hydroxide (Maalox Susp) 30 ml STK-MED ONCE .ROUTE 09/23/17 22:41 09/23/17 22:42 DC 09/23/17 22:44 30 ML Lidocaine HCl (Viscous Lidocaine 2% Soln) 20 ml STK-MED ONCE .ROUTE 09/23/17 22:42 09/23/17 22:43 DC 09/23/17 22:45 20 ML ECG Per My Interpretation Indication: chest pain Rate (beats per minute): 76 Rhythm: normal sinus Findings: other (normal axis, no ST elevation or depression) ED Course 2225: Past medical records reviewed. The patient was evaluated in room A3. A complete history and physical examination was performed. 2232: Carafate Tab 1 gm PO, Pepcid Tab 20 mg PO, NSS 1000 ml @ 999 mls/hr IV, Nicotine 1 patch TD. 2241: Maalox Susp 30 ml PO, Lidocaine HCl 20 ml PO. 2324: I reevaluated the patient. She is feeling much better. 2340: Upon reexamination the patient is feeling better. I discussed results and treatment plan with the patient. She verbalizes agreement and understanding. The patient is ready for discharge. Medical Decision Differential diagnosis: Etiologies such as metabolic, infection, hypo/hyperglycemia, electrolyte abnormalities, cardiac sources, intracerebral event, toxicologic, neurologic, as well as others were entertained. This is a 22-year-old female who presents emergency department with multiple complaints. The patient has been taking pain medications and I suspect she is having epigastric pain from stomach irritation. For this reason she was given Pepcid GI cocktail and Carafate. Repeat examination revealed improvement in the patient's symptoms. She was also given a NicoDerm patch and I strongly suggested that she sustained from smoking until she gets to the bottom of her abdominal pain or follow-up with GI. Patient does have slight elevation in her white blood cell count however has no evidence of fever. Serial abdominal examinations were performed and the patient while in the emergency department and at no time did the patient exhibited surgical abdomen. Based on this and using shared medical decision making with the patient we felt that a CAT scan would not reveal anything contributory. The patient was given a fluid bolus as well as breathing treatments and was feeling much better. Strongly recommended clear liquid diet for the next 48 hours along with Maalox and Pepcid. Patient was in agreement with treatment plan. Medication Reconcilliation Current Medication List: was personally reviewed by me Blood Pressure Screening Patient's blood pressure: Normal blood pressure Blood pressure disposition: Did not require urgent referral Impression Primary Impression: Epigastric pain Additional Impression: Dehydration Scribe Attestation The scribe's documentation has been prepared under my direction and personally reviewed by me in its entirety. I confirm that the note above accurately reflects all work, treatment, procedures, and medical decision making performed by me. Departure Information Dispostion Home / Self-Care Prescriptions Famotidine (Pepcid) 40 Mg Tab 40 MG PO HS for 30 Days, #30 TAB Prov: Isael Markham MD 09/23/17 Referrals John San M.D. (PCP) Forms HOME CARE DOCUMENTATION FORM, IMPORTANT VISIT INFORMATION Patient Instructions Diet Clear Liquid Dc, ED Epigastric Pain [facility], ED Smoking Cessation, My [facility], Tips Cardiovascular Quit Smoking Additional Instructions Take 5 ml Maalox before every meal and at bedtime Recommend clear liquid diet next 48 hours Follow up with DR Muniz's office for continued abd pain You have been examined and treated today on an emergency basis only. This is not a substitute for, or an effort to provide, complete comprehensive medical care. It is impossible to recognize and treat all injuries or illnesses in a single emergency department visit. It is therefore important that you follow up closely with Dr San. Call as soon as possible for an appointment. Thank you for your time and consideration. I look forward to speaking with you again soon. Please don't hesitate to call us if you have any questions. Problem Qualifiers
[2017-09-24 00:13] VITALS: BP 127/77; PULSE 70; O2SAT 98
--- NOTE | 2017-09-24 06:21 | DIAGNOSTIC IMAGING REPORT ---
ABDOMEN 2VIEW W/PA CHEST RTN CLINICAL HISTORY: Pt c/o epigastric pain pain COMPARISON STUDY: 12/05/2016 FINDINGS: The soft tissues, psoas shadows, renal outlines and intestinal gas pattern appear normal. There is no evidence for bowel obstruction. There is no evidence for free intraperitoneal air. No abnormal abdominal calcifications are seen. A frontal view of the chest was performed and is unremarkable. IMPRESSION: Normal study. The above report was generated using voice recognition software. It may contain grammatical, syntax or spelling errors. Electronically signed by: Johnny Joe M.D. 09/24/2017 6:19 AM Dictated Date/Time: 09/24/2017 6:19 AM
[2017-09-25 12:28] LABS: EBV EARLY ANTIGEN AB < 9.00 U/ML
--- NOTE | 2017-09-29 08:43 | EDITING REQUIRED CODING QUERY ---
CODING QUERY To promote full compliance with coding requirements relating to patient care, provider participation is requested in all cases of strainer tender uncertainty. Please assist us with the question(s) below: Coding Question(s): The HPI states that the patient smokes and the Medical Decision section states the patient was given a Nicoderm patch and advised not to smoke; but the social history section states the patient was never a smoker. Please clarify documentation. Physician's Response(s): Fixed in chart Thank you Janette Castillo Principal Diagnosis: "_that condition established after study, to be chiefly responsible for occasioning the admission of the patient to the hospital for care." Co-Existing Principal Diagnosis: "_when two or more diagnoses equally meet the criteria for principal diagnosis as determined by the circumstances of admission, diagnostic work up, and/or therapy provided, and the Alphabetic Index, Tabular List, or another coding guideline does not provide sequencing direction, any one of the diagnoses may be sequenced first." "When the physician has documented what appears to be a current diagnosis in the body of the record, but has not included the diagnosis in the final diagnostic statement, the physician should be asked whether the diagnosis should be added." (Source Coding Clinic 2 QTR90. p3-4)
== END 2017-09-24 00:13 | disposition home or self-care (01) ==
LOC: C.EDB 22:16 → C.EDA 09-24 00:13
DX: R10.13 Epigastric pain (principal); E86.0 Dehydration; R42 Dizziness and giddiness; H93.19 Tinnitus, unspecified ear; R53.83 Other fatigue; R07.9 Chest pain, unspecified; F17.200 Nicotine dependence, unspecified, uncomplicated; Z88.1 Allergy status to other antibiotic agents; Z88.2 Allergy status to sulfonamides; Z83.3 Family history of diabetes mellitus; Z82.49 Family history of ischemic heart disease and other diseases of the circulatory system; Z84.1 Family history of disorders of kidney and ureter; Z83.6 Family history of other diseases of the respiratory system

== ENCOUNTER 2018-02-08 19:47 | Emergency (ER) | payer BC ==
[~2018-02-08] VITALS: Ht 170.2 cm; Wt 75.0 kg
[~2018-02-08 19:47] MED LIST changes: +ALBU18002 INH; -CIPR-255 PO; -PROAIR 108 INH; -SERT50TA PO; -SNG10 PO
[2018-02-08 19:49] VITALS: TEMP 36.9; Ht 170.2 cm; Wt 75.0 kg
[2018-02-08] MEDS ORDERED: KETOROLAC TROMETHAMINE 30 MG/ML VIAL IV STA (19:58)
[2018-02-08] MEDS ORDERED: METHYLPREDNISOLONE 125 MG VIAL IV STA (19:59)
[2018-02-08] MEDS ORDERED: ALBUT/IPRATROP 3MG/0.5MG NEB 3 ML VIAL INH ONE (20:00)
[2018-02-08 20:09] VITALS: PULSE 79; O2SAT 98
--- NOTE | 2018-02-08 20:35 | DIAGNOSTIC IMAGING REPORT ---
CHEST ONE VIEW PORTABLE CLINICAL HISTORY: wheezing, smoker dyspnea COMPARISON STUDY: 09/23/2017 FINDINGS: The bones soft tissues and hemidiaphragms are normal. The cardiomediastinal silhouette is normal. The lungs are clear. The pulmonary vasculature is normal. IMPRESSION: Negative chest. The above report was generated using voice recognition software. It may contain grammatical, syntax or spelling errors. Electronically signed by: Johnny Joe M.D. 02/08/2018 8:34 PM Dictated Date/Time: 02/08/2018 8:33 PM
[2018-02-08 20:36] LABS: BASO % 0.6 %; BASO ABS # 0.06 K/uL (0-0.2); EOS % 1.6 %; EOS ABS # 0.17 K/uL (0-0.5); IG# 0.02 K/uL (0.00-0.02); LYMPH % 37.3 %; LYMPH ABS # 3.94 K/uL (1.2-3.4); MEAN CELL VOLUME 89.7 fL (80-100); MEAN CORPUSCULAR HEMOGLOBIN 30.6 pg (25-34); MEAN CORPUSCULAR HGB CONC 34.1 g/dl (32-36); MEAN PLATELET VOLUME 11.2 fL (7.4-10.4); MONO ABS # 0.74 K/uL (0.11-0.59); NEUT % 53.3 %; NEUT ABS # 5.62 K/uL (1.4-6.5); PLATELET COUNT 208 K/uL (130-400); RED CELL DISTRIBUTION WIDTH CV 13.6 % (11.5-14.5); RED CELL DISTRIBUTION WIDTH SD 44.6 fL (36.4-46.3); WHITE BLOOD COUNT 10.55 K/uL (4.8-10.8)
[2018-02-08 20:55] LABS: ALBUMIN 4.3 gm/dl (3.4-5.0); CALCIUM 9.4 mg/dl (8.5-10.1); CREATININE 0.76 mg/dl (0.60-1.20); POTASSIUM 3.8 mmol/L (3.5-5.1); TOTAL PROTEIN 7.5 gm/dl (6.4-8.2)
[2018-02-08 21:36] VITALS: BP 119/58; PULSE 82; O2SAT 97
[2018-02-08] MEDS ORDERED: PRED20TA PO (21:57)
--- NOTE | 2018-02-09 00:11 | EMERGENCY ROOM VISIT NOTE ---
History First contact with patient: 19:52 Chief Complaint: RESPIRATORY PROBLEMS Stated Complaint: TROUBLE BREATHING, WHEEZING, CHEST PAIN, THROAT CL Nursing Triage Summary: pt c/o coughing up muccous for past 2 months, pt is a smoker and has not seen her pcp for cough, pt states feels like her throat is closing History of Present Illness The patient is a 22 year old female who presents to the Emergency Room with complaints of shortness of breath. Patient states she has had some difficulty with coughing and some mucus production. Patient admits to some pain to the bilateral mid back with deep inspiration or cough. Patient smokes approximately one half pack of cigarettes per day. She has been using her inhaler without significant relief. She denies any fever but does complain of some throat tightening. She denies any swelling of the lips, tongue or face. Patient denies any significant fever or chest pain. Review of Systems See HPI for pertinent positives & negatives. A total of 10 systems reviewed and were otherwise negative. Past Medical/Surgical History Surgical Problems: (1) History of ear surgery Family History Cancer Diabetes mellitus Heart disease Hypertension Kidney disease Kidney stones Lung disease Social History Smoking Status: Current Every Day Smoker Alcohol Use: none Drug Use: none Marital Status: in relationship Housing Status: lives with roommate Occupation Status: employed Current/Historical Medications Scheduled Prednisone (Prednisone), 40 MG PO DAILY Scheduled PRN Albuterol Sulfate (Proair Respiclick), 2 PUFFS INH Q4 PRN for COUGH/WHEEZE Fluticasone Prop/Salmeterol (Advair Diskus 250/50 60 Dose), 1 PUFF INH BID PRN for SOB/Wheezing Physical Exam Vital Signs Date Time Temp Pulse Resp B/P (MAP) Pulse Ox O2 Delivery O2 Flow Rate FiO2 02/08/18 21:36 82 18 119/58 97 Room Air 02/08/18 20:15 79 02/08/18 20:09 79 14 98 Room Air 02/08/18 19:49 36.9 96 19 143/89 99 Room Air Physical Exam Vital signs reviewed. General: Well-appearing 22-year-old female, in no significant distress. HEENT: No scleral icterus, PERRLA, neck supple. Atraumatic. Cardiovascular: Regular rate and rhythm, no extra sounds. Pulmonary: Faint scattered wheezes to auscultation bilaterally, slightly increased work of breathing. Abdomen: Soft, nontender, nondistended, positive bowel sounds. Musculoskeletal: Atraumatic, no peripheral edema. Neurologic: Patient awake alert and oriented x 3 Skin: Warm, dry, no rash Medical Decision & Procedures ER Provider Diagnostic Interpretation: CHEST ONE VIEW PORTABLE CLINICAL HISTORY: wheezing, smoker dyspnea COMPARISON STUDY: 09/23/2017 FINDINGS: The bones soft tissues and hemidiaphragms are normal. The cardiomediastinal silhouette is normal. The lungs are clear. The pulmonary vasculature is normal. IMPRESSION: Negative chest. The above report was generated using voice recognition software. It may contain grammatical, syntax or spelling errors. Electronically signed by: Johnny Joe M.D. 02/08/2018 8:34 PM Dictated Date/Time: 02/08/2018 8:33 PM Laboratory Results 02/08/18 20:15 Red Blood Count 4.57, Mean Corpuscular Volume 89.7, Mean Corpuscular Hemoglobin 30.6, Mean Corpuscular Hemoglobin Concent 34.1, Mean Platelet Volume 11.2, Neutrophils (%) (Auto) 53.3, Lymphocytes (%) (Auto) 37.3, Monocytes (%) (Auto) 7.0, Eosinophils (%) (Auto) 1.6, Basophils (%) (Auto) 0.6, Neutrophils # (Auto) 5.62, Lymphocytes # (Auto) 3.94, Monocytes # (Auto) 0.74, Eosinophils # (Auto) 0.17, Basophils # (Auto) 0.06 02/08/18 20:15 Test 02/08/18 00:00 02/08/18 20:15 02/08/18 20:25 Urine Color YELLOW Urine Appearance CLEAR (CLEAR) Urine pH 5.0 (4.5-7.5) Urine Specific [place] 1.009 (1.000-1.030) Urine Protein NEG (NEG) Urine Glucose (UA) NEG (NEG) Urine Ketones NEG (NEG) Urine Occult Blood NEG (NEG) Urine Nitrite NEG (NEG) Urine Bilirubin NEG (NEG) Urine Urobilinogen NEG (NEG) Urine Leukocyte Esterase NEG (NEG) Urine Test NEG (NEG) White Blood Count 10.55 K/uL (4.8-10.8) Red Blood Count 4.57 M/uL (4.2-5.4) Hemoglobin 14.0 g/dL (12.0-16.0) Hematocrit 41.0 % (37-47) Mean Corpuscular Volume 89.7 fL (80-100) Mean Corpuscular Hemoglobin 30.6 pg (25-34) Mean Corpuscular Hemoglobin Concent 34.1 g/dl (32-36) Platelet Count 208 K/uL (130-400) Mean Platelet Volume 11.2 fL (7.4-10.4) Neutrophils (%) (Auto) 53.3 % Lymphocytes (%) (Auto) 37.3 % Monocytes (%) (Auto) 7.0 % Eosinophils (%) (Auto) 1.6 % Basophils (%) (Auto) 0.6 % Neutrophils # (Auto) 5.62 K/uL (1.4-6.5) Lymphocytes # (Auto) 3.94 K/uL (1.2-3.4) Monocytes # (Auto) 0.74 K/uL (0.11-0.59) Eosinophils # (Auto) 0.17 K/uL (0-0.5) Basophils # (Auto) 0.06 K/uL (0-0.2) RDW Standard Deviation 44.6 fL (36.4-46.3) RDW Coefficient of Variation 13.6 % (11.5-14.5) Immature Granulocyte % (Auto) 0.2 % Immature Granulocyte # (Auto) 0.02 K/uL (0.00-0.02) Anion Gap 10.0 mmol/L (3-11) Est Creatinine Clear Calc Drug Dose 122.8 ml/min Estimated GFR () 129.1 Estimated GFR (Non- 111.3 BUN/Creatinine Ratio 13.4 (10-20) Calcium Level 9.4 mg/dl (8.5-10.1) Total Bilirubin 0.4 mg/dl (0.2-1) Direct Bilirubin 0.1 mg/dl (0-0.2) Aspartate Amino Transf (AST/SGOT) 12 U/L (15-37) Alanine Aminotransferase (ALT/SGPT) 13 U/L (12-78) Alkaline Phosphatase 81 U/L (45-117) Total Protein 7.5 gm/dl (6.4-8.2) Albumin 4.3 gm/dl (3.4-5.0) Bedside D-Dimer 390 ng/mlFEU (0-450) Medications Administered Medications (Trade) Dose Ordered Sig/Chad Route Start Time Stop Time Status Last Admin Dose Admin Albuterol/ Ipratropium (Duoneb) 12 ml ONE ONCE INH 02/08/18 20:00 02/08/18 20:01 DC 02/08/18 20:09 12 ML Methylprednisolone Sodium Succinate (Solu-Medrol IV) 125 mg NOW STAT IV 02/08/18 19:59 02/08/18 20:01 DC 02/08/18 20:26 125 MG ECG Per My Interpretation Indication: SOB/dyspnea Rate (beats per minute): 83 Rhythm: normal sinus Findings: no acute ischemic change, no ectopy Medical Decision Differential diagnosis: Etiologies such as infections, reactive airway disease, pneumonia, pneumothorax , COPD, CHF, cardiac ischemia, pulmonary embolism, musculoskeletal, gastrointestinal, as well as others were entertained. This patient was evaluated and appeared to be in no significant distress. Patient was given a nebulizer treatment, IV Solu-Medrol. Chest x-ray was performed and reveals no focal abnormality. EKG reveals a normal sinus rhythm without evidence of acute ischemia or dysrhythmia. Patient's laboratory work reveals negative d-dimer. Patient was encouraged to stop smoking. On reevaluation she was feeling much improved. She will continue her albuterol as needed and was given prednisone 40 mg daily for the next 4 days. She will follow-up with her PCP this week for reevaluation and return to the ED for worsening of symptoms or any medical concerns. Blood Pressure Screening Patient's blood pressure: Normal blood pressure Impression Primary Impression: Asthma exacerbation Additional Impression: Tobacco dependence due to cigarettes Departure Information Dispostion Home / Self-Care Condition GOOD Prescriptions Prednisone (Prednisone) 20 Mg Tab 40 MG PO DAILY, #8 TAB Prov: vIonne Bird M.D. 02/08/18 Forms WORK / SCHOOL INSTRUCTIONS, HOME CARE DOCUMENTATION FORM, IMPORTANT VISIT INFORMATION Patient Instructions My [facility] Additional Instructions Diagnosis: Asthma exacerbation, tobacco dependency Prednisone 40 mg daily for the next 4 days. Albuterol 2 puffs every 4 hours as needed for wheezing. Please stop smoking as soon as possible. Follow-up with your primary care physician this week for reevaluation. Return to the emergency department for worsening of symptoms or any medical concerns. Problem Qualifiers
== END 2018-02-08 22:11 | disposition home or self-care (01) ==
LOC: C.EDB 19:48 → C.EDC 22:11
DX: J45.901 Unspecified asthma with (acute) exacerbation (principal); F17.200 Nicotine dependence, unspecified, uncomplicated